=== PATIENT | male | born 1970 | race African-American/Black ===

== ENCOUNTER 2024-11-17 19:42 | Inpatient (IN) | payer MEDICAID ==
[~2024-11-17] VITALS: Ht 180.3 cm; Wt 109.0 kg
[2024-11-17 22:00] VITALS: BP 121/79; PULSE 103; RESP 20; TEMP 98.9; O2SAT 98
[2024-11-17] MEDS: SOD CHL 0.45% 1,000 ML IV SCH (22:45)
[2024-11-17] MEDS ORDERED: NITROGLYCERIN 0.4 MG SL TAB SL PRN ×2 (22:45→23:15)
[2024-11-17] MEDS ORDERED: MORPHINE SULFATE INJ 2 MG/ml SYRG IV PRN ×2 (22:45→23:15)
[2024-11-17] MEDS ORDERED: CEFOTAXIME SODIUM 2 GM in D5W 5% 100 ML IV ONE (22:45)
[2024-11-17] MEDS ORDERED: KETOROLAC TROMETH 30 MG/ML 1ML VIAL IV PRN (22:45)
[2024-11-17] MEDS: KETOROLAC TROMETH 30 MG/ML 1ML VIAL IV ONE (22:45)
[2024-11-17 23:00] VITALS: PULSE 103; RESP 20; O2SAT 98
[2024-11-17] MEDS ORDERED: ACETAMINOPHEN 500 MG TAB or CAP PO PRN (23:15)
[2024-11-17] MEDS ORDERED: SOD CHL 0.45% 1,000 ML IV SCH (23:15)
--- NOTE | 2024-11-17 23:24 | DVHHP2 ---
Patient Family History: Patient reports no known family medical history. Allergies: Coded Allergies: Penicillins (Verified Allergy, Mild, SWELLING, 10/19/12) Home Meds No Active Prescriptions or Reported Meds Vital Signs Vital Signs Date Time Temp Pulse Resp B/P (MAP) Pulse Ox O2 Delivery O2 Flow Rate FiO2 11/17/24 22:00 98.9 103 20 121/79 (93) 98 98.9 SEPSIS Sepsis Screen Physician Orders Admit (11/17/24 20:56) Oxygen By Nasal Cannula (11/17/24 22:39) Nitroglycerin Sublingual (Ntrostat Subli (11/17/24 22:45) Morphine Sulfate Injection (11/17/24 22:45) Notify Md Of Changes From Base (11/17/24 22:39) Emergency Dysrhythmia Protocol (11/17/24 22:39) Rhythm Strips Once Every Shift (11/17/24 22:39) Condition: Stable (11/17/24 22:39) Complete Blood Count (11/17/24 22:39) Comprehensive Metabolic Panel (11/17/24 22:39) Ekg On Admit (11/17/24 22:39) Prothrombin Time W/ Inr (11/17/24 22:39) Urinalysis (11/17/24 22:39) Ct Ab Pelvis W Wo Con-Iv Only (11/17/24 22:39) * Surgical Consult (11/17/24 ) Sod Chl 0.45% (Sodium Chloride 0.45% Via (11/17/24 22:45) Metronidazole 500mg/100ml (Flagyl 500mg/ (11/18/24 06:00) Metronidazole 500mg/100ml (Flagyl 500mg/ (11/17/24 22:45) Cefotaxime Sodium (Claforan) (11/17/24 22:45) Cefotaxime Sodium (Claforan) (11/18/24 06:00) Ketorolac Injection (Toradol Injection) (11/17/24 22:45) Hydromorphone Injection (Dilaudid Inject (11/17/24 22:45) Valsartan (Diovan) (11/18/24 10:00) Admit (11/17/24 23:10) Nitroglycerin Sublingual (Ntrostat Subli (11/17/24 23:15) Morphine Sulfate Injection (11/17/24 23:15) Stat Ekg For Chest Pain (11/17/24 23:10) Notify Of Changes From Base (11/17/24 23:10) Auto Bumper Straightener For 24 Hours (11/17/24 23:10) Oxygen By Nasal Cannula (11/17/24 23:10) 1/2 Ns (11/17/24 23:15) Acetaminophen Tab Or Cap (Tylenol Tablet (11/17/24 23:15) Cefoxitin Ivpb Mefoxin (11/18/24 06:00) Metronidazole Ivpb Flagyl (11/18/24 06:00) Complete Blood Count (11/18/24 07:00) Complete Blood Count (11/18/24 07:00) Comprehensive Metabolic Panel (11/18/24 23:10) Comprehensive Metabolic Panel (11/18/24 07:00) Magnesium (11/18/24 07:00) Phosphorus (11/17/24 23:10) Blood Culture (11/17/24 23:10) Blood Culture (11/18/24 23:10) Blood Culture (11/19/24 23:10) Blood Culture (11/20/24 23:10) Blood Culture (11/21/24 23:10) Blood Culture (11/22/24 23:10) Vital Signs Date Time Temp Pulse Resp B/P (MAP) Pulse Ox O2 Delivery O2 Flow Rate FiO2 11/17/24 22:00 98.9 103 20 121/79 (93) 98 98.9 ANA LAURA ESPINOZA MD Nov 17, 2024 23:24
[2024-11-18] VITALS (8 sets, daily range): BP systolic 115–134; BP diastolic 71–90; PULSE 71–101; RESP 16–20; TEMP 97.4–98.9; O2SAT 96–98
[2024-11-18 00:24] LABS: Hematocrit 42.5 % (41.0-53.0); Hemoglobin 14.4 g/dL (13.5-17.5); Mean Corpuscular Hemoglobin 29.2 pg (28.0-32.0); Mean Corpuscular Volume 86.3 fL (80.0-100.0); Nucleated Red Blood Cells % 0.0 %
[2024-11-18 00:30] LABS: INR 0.98 (0.9-1.15); Prothrombin Time 10.4 sec (9.3-11.8)
[2024-11-18 00:32] LABS: Alanine Aminotransferase 23 U/L (7-40); Albumin 4.0 g/dL (3.2-4.8); Alkaline Phosphatase 105 U/L (46-116); Anion Gap 8 (5-15); BUN/Creatinine Ratio 10.7 (10.0-20.0); Bilirubin, Total 0.4 mg/dL (0.2-1.0); Blood Urea Nitrogen 11 mg/dL (9-23); Carbon Dioxide 26 mmol/L (20-31); Chloride 104 mmol/L (98-107); Potassium 4.0 mmol/L (3.5-5.1); Sodium 138 mmol/L (136-145); Total Protein 7.0 g/dL (5.7-8.2)
[2024-11-18 00:38] LABS: Calcium 8.5 mg/dL (8.7-10.4); Glucose 121 mg/dL (74-106)
[2024-11-18] MEDS ORDERED: CEFOTAXIME SODIUM 1 GM in D5W 5% 50 ML IV SCH (06:00)
[2024-11-18 06:35] LABS: Alanine Aminotransferase 23 U/L (7-40); Albumin 3.7 g/dL (3.2-4.8); Alkaline Phosphatase 97 U/L (46-116); Anion Gap 8 (5-15); BUN/Creatinine Ratio 11.8 (10.0-20.0); Blood Urea Nitrogen 12 mg/dL (9-23); Carbon Dioxide 25 mmol/L (20-31); Chloride 106 mmol/L (98-107); Magnesium 2.0 mg/dL (1.6-2.6); Potassium 4.0 mmol/L (3.5-5.1); Sodium 139 mmol/L (136-145); Total Protein 6.7 g/dL (5.7-8.2)
[2024-11-18 06:36] LABS: Bilirubin, Total 0.4 mg/dL (0.2-1.0)
[2024-11-18 06:38] LABS: Hematocrit 42.8 % (41.0-53.0); Hemoglobin 14.4 g/dL (13.5-17.5); Mean Corpuscular Hemoglobin 29.3 pg (28.0-32.0); Mean Corpuscular Volume 87.0 fL (80.0-100.0); Nucleated Red Blood Cells % 0.1 %
[2024-11-18 06:42] LABS: Calcium 8.2 mg/dL (8.7-10.4); Glucose 113 mg/dL (74-106)
[2024-11-18] MEDS ORDERED: IOHEXOL 300 MG/ML 100ML BOTTLE IJ ONE (07:08)
--- NOTE | 2024-11-18 08:32 | DVH ---
Exam: CT CT AB PEL WITH IV CON ONLY History: Rectal abscess COMPARISON: None Technique: Multidetector spiral CT of the abdomen and pelvis was performed from lung bases to pubic s ymphysis. Intravenous contrast was administered during this examination. Portal venous imaging was o btained. Axial, coronal and sagittal multiplanar reformats were performed by the technologist on a [employer] workstation. Radiation Dose : 1. Abdomen/Pelvis: CTDIvol 15.5mGy, DLP 940.79 mGy*cm. Findings: Lung Bases: Dependent atelectasis, [id number]. Liver: The liver is normal in size. No focal lesions. Normal hepatic vascular enhancement. Gallbladder and Biliary Tree: Unremarkable Spleen: Unremarkable Pancreas: The pancreas is normal in appearance without focal lesions or abnormal enhancement. Adrenal Glands: Unremarkable Kidneys: No hydronephrosis. Bladder: Unremarkable Bowel: The stomach is grossly normal in appearance. Small bowel and colon are normal in caliber and d istribution. Normal appendix is visualized in the right lower quadrant without findings of appendicit is. Ascites: Absent Lymphadenopathy: No mesenteric, retroperitoneal or periportal lymphadenopathy. Abdominal Wall and Mesentery: Mild asymmetric soft-tissue thickening in the inferior left gluteal derek ft measuring 2.7 cm. Vasculature: The visualized abdominal aorta is normal in size and caliber. Abdominal and pelvic vess els demonstrate normal enhancement. Pelvic Organs: Unremarkable Musculoskeletal: No aggressive focal bony lesions, acute fractures or dislocation. IMPRESSION: Mild asymmetric soft-tissue thickening in the inferior left gluteal cleft measuring 2.7 cm. This may represent a perianal fistula/abscess. Surgical consultation advised.
[2024-11-18] MEDS: VALSARTAN 80 MG TAB PO SCH (10:57)
--- NOTE | 2024-11-18 12:02 | DVHINCON2 ---
Date of service: Nov 18, 2024 Family History: Patient reports no known family medical history. Allergies: Coded Allergies: Penicillins (Verified Allergy, Mild, SWELLING, 10/19/12) Home Meds No Active Prescriptions or Reported Meds Current Medications Current Medications Medications (Trade) Dose Ordered Sig/Calixto Route PRN Reason Start Time Stop Time Status Last Admin Nitroglycerin (Ntrostat Sublingual) 0.4 mg Q5MINP PRN SL FOR CHEST PAIN 11/17/24 22:45 Morphine Sulfate 2 mg Q30M PRN IV FOR CHEST PAIN 11/17/24 22:45 Sodium Chloride 1,000 ml @ 100 mls/hr Q10H IV 11/17/24 22:45 11/17/24 22:45 Metronidazole 100 ml @ 100 mls/hr Q8HR IV 11/18/24 06:00 Cancel Cefotaxime Sodium 1 gm/Dextrose 50 ml @ 50 mls/hr Q8HR IV 11/18/24 06:00 11/17/24 23:54 DC Ketorolac Tromethamine (Toradol Injection) 30 mg Q8HR PRN IV MODERATE PAIN (4-6 PAIN SCALE) 11/17/24 22:45 11/22/24 22:44 Hydromorphone HCl (Dilaudid Injection) 1 mg Q4HPRN PRN IV SEVERE PAIN (7-10 PAIN SCALE) 11/17/24 22:45 Valsartan (Diovan) 160 mg DAILY PO 11/18/24 10:00 11/18/24 10:57 Nitroglycerin (Ntrostat Sublingual) 0.4 mg Q5MINP PRN SL FOR CHEST PAIN 11/17/24 23:15 Morphine Sulfate 2 mg Q30M PRN IV FOR CHEST PAIN 11/17/24 23:15 Sodium Chloride 1,000 ml @ 100 mls/hr Q10H IV 11/17/24 23:15 Cancel Acetaminophen (Tylenol Tablet Or Capsule) 500 mg Q6HP PRN PO MILD PAIN (1-3 PAIN SCALE) 11/17/24 23:15 Cefoxitin Sodium 100 ml @ 100 mls/hr Q8HR IV 11/18/24 06:00 11/18/24 10:57 Metronidazole 100 ml @ 100 mls/hr Q8HR IV 11/18/24 06:00 11/18/24 05:07 Cefotaxime Sodium 1 gm/Dextrose 50 ml @ 50 mls/hr Q8HR IV 11/18/24 06:00 Cancel Vital Signs Vital Signs Date Time Temp Pulse Resp B/P (MAP) Pulse Ox O2 Delivery O2 Flow Rate FiO2 11/18/24 10:57 121/79 11/18/24 09:00 97.4 71 20 97 97.4 11/18/24 08:00 Room Air* 0 21 Labs/Diagnostic Data Labs Test 11/18/24 05:45 11/17/24 23:26 Range/Units White Blood Count 13.4 H 4.4-10.8 10^3/uL Red Blood Count 4.92 4.5-5.90 10^6/uL Hemoglobin 14.4 13.5-17.5 g/dL Hematocrit 42.8 41.0-53.0 % Mean Corpuscular Volume 87.0 80.0-100.0 fL Mean Corpuscular Hemoglobin 29.3 28.0-32.0 pg Mean Corpuscular Hemoglobin Concent 33.6 32.0-36.0 g/dL Red Cell Distribution Width 15.1 H 11.8-14.3 % Platelet Count 334 140-450 10^3/uL Mean Platelet Volume 6.8 L 6.9-10.8 fL Neutrophils (%) (Auto) 65.2 37.0-80.0 % Lymphocytes (%) (Auto) 22.2 10.0-50.0 % Monocytes (%) (Auto) 9.7 0.0-12.0 % Eosinophils (%) (Auto) 2.4 0.0-7.0 % Basophils (%) (Auto) 0.5 0.0-2.0 % Neutrophils # (Auto) 8.7 H 1.6-8.6 10 ^3/uL Lymphocytes # (Auto) 3.0 0.4-5.4 10 ^3/uL Monocytes # (Auto) 1.3 0-1.3 10 ^3/uL Eosinophils # (Auto) 0.3 0-0.8 10 ^3/uL Basophils # (Auto) 0.1 0-0.2 10 ^3/uL Nucleated Red Blood Cells 0.1 % Sodium Level 139 136-145 mmol/L Potassium Level 4.0 3.5-5.1 mmol/L Chloride Level 106 98-107 mmol/L Carbon Dioxide Level 25 20-31 mmol/L Anion Gap 8 5-15 Blood Urea Nitrogen 12 9-23 mg/dL Creatinine 1.02 0.700-1.30 mg/dL Glomerular Filtration Rate Calc 88 >90 mL/min BUN/Creatinine Ratio 11.8 10.0-20.0 Serum Glucose 113 H 74-106 mg/dL Calcium Level 8.2 L 8.7-10.4 mg/dL Magnesium Level 2.0 1.6-2.6 mg/dL Total Bilirubin 0.4 0.2-1.0 mg/dL Aspartate Amino Transferase (AST) 21 13-40 U/L Alanine Aminotransferase (ALT) 23 7-40 U/L Alkaline Phosphatase 97 46-116 U/L Total Protein 6.7 5.7-8.2 g/dL Albumin 3.7 3.2-4.8 g/dL Prothrombin Time 10.4 9.3-11.8 sec Prothrombin Time INR 0.98 0.9-1.15 Phosphorus Level 3.1 2.4-5.1 mg/dL Assessment 11/18/24 patient has a spontaneously draining perirectal abscess, this is his second episode of same problem, probable fistulain ano, will decide on intervention depending on symptomatology tomorrow, npo after MN. Plan discussed with: Patient LAM ORTA MD Nov 18, 2024 12:02
--- NOTE | 2024-11-18 16:05 | DVHPN2 ---
Progress Note - Dictate Date Seen: Nov 18, 2024 Subjective The patient reports to have some improvement in local pains while noting Drainage from perirectal abscess Denies fever chills Feels relatively better as his state of hypovolemia is being corrected Continued on IV antibiotics vital signs Vital Sign Date Time Temp Pulse Resp B/P (MAP) Pulse Ox O2 Delivery O2 Flow Rate FiO2 11/18/24 13:00 98.2 79 18 115/77 (90) 96 98.2 11/18/24 08:00 Room Air* 0 21 Total Intake and Output 11/17/24 11/17/24 11/18/24 15:00 23:00 07:00 Intake Total 200 ml Balance 200 ml medications Current Medications Medications Dose Ordered Sig/Calixto Route Start Time Stop Time Status Last Admin Dose Admin Nitroglycerin 0.4 mg Q5MINP PRN SL 11/17/24 22:45 Morphine Sulfate 2 mg Q30M PRN IV 11/17/24 22:45 Sodium Chloride 1,000 ml @ 100 mls/hr Q10H IV 11/17/24 22:45 11/17/24 22:45 100 MLS/HR Metronidazole 100 ml @ 100 mls/hr Q8HR IV 11/18/24 06:00 Cancel Ketorolac Tromethamine 30 mg Q8HR PRN IV 11/17/24 22:45 11/22/24 22:44 Hydromorphone HCl 1 mg Q4HPRN PRN IV 11/17/24 22:45 Valsartan 160 mg DAILY PO 11/18/24 10:00 11/18/24 10:57 160 MG Nitroglycerin 0.4 mg Q5MINP PRN SL 11/17/24 23:15 Morphine Sulfate 2 mg Q30M PRN IV 11/17/24 23:15 Sodium Chloride 1,000 ml @ 100 mls/hr Q10H IV 11/17/24 23:15 Cancel Acetaminophen 500 mg Q6HP PRN PO 11/17/24 23:15 Cefoxitin Sodium 100 ml @ 100 mls/hr Q8HR IV 11/18/24 06:00 11/18/24 10:57 100 MLS/HR Metronidazole 100 ml @ 100 mls/hr Q8HR IV 11/18/24 06:00 11/18/24 14:12 100 MLS/HR Cefotaxime Sodium 1 gm/Dextrose 50 ml @ 50 mls/hr Q8HR IV 11/18/24 06:00 Cancel objective General appearance: Well-developed, well-nourished Awake alert oriented x3 no respiratory distress Head: Normocephalic nontraumatic Eyes: EOMI, STACY, sclera nonicteric, conjunctive- pale ENT: No congestion, NSL bilateral symmetrical, oral mucosa dry Neck: Supple, carotid upstroke +2, trachea midline, JVD-3 cm, C spine- Full ROM No thyroid or lymph node , no use of sternomastoid muscle Chest: Bilateral symmetrical expansions, No costochondral tenderness Breasts: I exam - Bilateral symmetrical, Pexam - deferred Lungs: clear breath sounds all over except reduced at bases CVS: PMI- cm medial to L MCL in fifth ICS , S1- S2 NSR no S3 GI: Abdomen soft, obese, bowel sounds normoactive No focal tenderness, no rebound tenderness No hepatosplenomegaly, no mass no hernia , : No CVA tenderness, no bladder mass palpable, genitalia-NE SKIN: Turgor normal, color pink, no rash, no icterus, No varicosity, no ulcers or wounds EXTs: No edema, color pink, no rash, no ecchymosis distal pulses +2 capillary refill <2 seconds, No open wounds JOINTS; full range of motion BACK: No apparent lumbosacral spinal muscle tenderness, LYMPH NODES: No cervical, axillary or inguinal lymph nodes Neuro: Awake alert oriented 4, coherent, all cognitives- intact No pronator drift, no focal motor deficit, No focal sensory deficit, DTR +2, gait steady PSYCH: Affect mildly depressed-denies suicidal ideation laboratory and microbiology Laboratory Tests 11/18/24 05:45 Test 11/18/24 05:45 Range/Units Serum Glucose 113 H 74-106 mg/dL Problem List Perirectal abscess Hypovolemia Well-controlled hypertension Exogenous obesity with current BMI > 30-35 kg per m2 Assessment/Plan Continue IV antibiotics Recommend Sitz bath Await for intake and output versus ANA LAURA ESPINOZA MD Nov 18, 2024 16:05
[2024-11-18] MEDS: HYDROmorphone HCL 2 MG/ML VL/or syr IV PRN (17:37)
[2024-11-19 00:05] LABS: Alanine Aminotransferase 19 U/L (7-40); Albumin 3.6 g/dL (3.2-4.8); Alkaline Phosphatase 97 U/L (46-116); Anion Gap 7 (5-15); BUN/Creatinine Ratio 8.8 (10.0-20.0); Carbon Dioxide 23 mmol/L (20-31); Chloride 107 mmol/L (98-107); Glucose 100 mg/dL (74-106); Potassium 3.9 mmol/L (3.5-5.1); Sodium 137 mmol/L (136-145); Total Protein 6.4 g/dL (5.7-8.2)
[2024-11-19 00:07] LABS: Bilirubin, Total 0.3 mg/dL (0.2-1.0); Blood Urea Nitrogen 9 mg/dL (9-23); Calcium 8.0 mg/dL (8.7-10.4)
[2024-11-19 01:00] VITALS: BP 112/73; PULSE 68; RESP 17; TEMP 98.3; O2SAT 98
[2024-11-19 05:00] VITALS: BP 119/76; PULSE 71; RESP 17; TEMP 98; O2SAT 100
[2024-11-19 08:21] VITALS: PULSE 75; RESP 18; O2SAT 99
[2024-11-19 09:00] VITALS: BP 129/80; PULSE 75; RESP 18; TEMP 97.6; O2SAT 99
== END 2024-11-19 08:54 | disposition left against medical advice (07) | DRG 254 ==
LOC: WEST WING 21:54 → TELE-WESTW 23:27
PROVIDERS: ADMIT Specialist; ATTEND Specialist
DX: K61.1 Rectal abscess (principal); E66.09 Other obesity due to excess calories; E86.1 Hypovolemia; Z53.29 Procedure and treatment not carried out because of patient's decision for other reasons; I10 Essential (primary) hypertension; Z88.0 Allergy status to penicillin; Z68.30 Body mass index [BMI] 30.0-30.9, adult
CPT/HCPCS: 36415; 74177; 80053; 83735; 84100; 85025; 85610; 87040; G0378; J0694; J1885; J3490; J7060